=== PATIENT | male | born 1985 | race African-American/Black ===

== ENCOUNTER 2021-01-24 19:34 | Emergency (ER) | payer OTHER ==
[~2021-01-24] VITALS: Ht 170.2 cm; Wt 81.8 kg
[2021-01-24] MEDS ORDERED: BACITRACIN ZINC OINT UDPKT TOP ONE (20:00)
[2021-01-24] MEDS ORDERED: TETANUS, DIPHTHERIA, PERTUSSIS VAC/PF 0.5ML (>7YR OLD) IM ONE (20:00)
[2021-01-24] MEDS ORDERED: LIDOCAINE HCL/PF 1% 10 MG/ML 5ML VIAL IJ ONE (20:00)
[2021-01-24] MEDS ORDERED: ACETAMINOPHEN 325MG TABLET PO ONE (20:00)
[2021-01-24 21:36] VITALS: BP 122/80
== END 2021-01-24 21:30 | disposition home or self-care (01) ==
LOC: ER 19:34
DX: S61.412A Laceration without foreign body of left hand, initial encounter (principal); F17.210 Nicotine dependence, cigarettes, uncomplicated; W26.8XXA Contact with other sharp object(s), not elsewhere classified, initial encounter; Y93.89 Activity, other specified; Y92.9 Unspecified place or not applicable
CPT/HCPCS: 12001; 90471; 90715; 99284; J3490; Z7610

== ENCOUNTER 2021-01-28 23:56 | Emergency (ER) | payer OTHER ==
[~2021-01-28] VITALS: Ht 170.2 cm; Wt 81.0 kg
[2021-01-29] MEDS ORDERED: TC1C15 TP (01:10)
[2021-01-29 01:17] VITALS: BP 121/76
== END 2021-01-29 01:18 | disposition home or self-care (01) ==
LOC: ER 23:56
DX: L30.1 Dyshidrosis [pompholyx] (principal); S61.412D Laceration without foreign body of left hand, subsequent encounter; W45.8XXD Other foreign body or object entering through skin, subsequent encounter
CPT/HCPCS: 99282

== ENCOUNTER 2023-10-29 14:56 | Emergency (ER) | payer OTHER ==
[~2023-10-29] VITALS: Ht 172.7 cm; Wt 83.0 kg
[~2023-10-29 14:56] MED LIST: AMOX-424 MT; BACI3.5O24 TOP; TC1C15 TP
[2023-10-29 15:02] VITALS: O2SAT 99
[2023-10-29] MEDS ORDERED: IBUP-2029 MT (15:26)
[2023-10-29 15:48] VITALS: BP 123/73; PULSE 71; RESP 16; TEMP 97.7
[2023-10-29] MEDS: IBUPROFEN 600MG TABLET PO ONE (15:48)
== END 2023-10-29 15:50 | disposition home or self-care (01) ==
LOC: ER 14:56
DX: S40.021A Contusion of right upper arm, initial encounter (principal); X58.XXXA Exposure to other specified factors, initial encounter; Y93.89 Activity, other specified; Y92.89 Other specified places as the place of occurrence of the external cause; Y99.8 Other external cause status
CPT/HCPCS: 99282